=== PATIENT | female | born 1970 | race Caucasian/White ===

== ENCOUNTER 2018-04-08 20:30 | Emergency (ER) | payer OTHER ==
[2018-04-08 20:38] VITALS: BP 142/79; PULSE 74; TEMP 97.7; BMI 29.8
--- NOTE | 2018-04-08 21:29 | PDOC ---
History of Present Illness - General Chief Complaint: Pain, Acute Stated Complaint: PAIN Time Seen by Provider: 04/08/18 20:40 History Source: Patient Exam Limitations: No Limitations - History of Present Illness Initial Comments: 04/08/18 21:23 47-year-old woman past medical history of ADHD and meniscus repair of the left knee 4 years ago. Patient states she tore her ACL at that time but never had the ACL repair. Patient reports taking Percocet as prescribed by her primary which has not relieved the pain. Patient also took diclofenac she had from a previous prescription which had minimal relief of pain. She denies any new trauma to the knee. Past History - Past Medical History Allergies/Adverse Reactions: Allergies Allergy/AdvReac Type Severity Reaction Status Date / Time No Known Drug Allergies Allergy Verified 04/08/18 20:36 Home Medications: Ambulatory Orders Oxycodone HCl/Acetaminophen [Percocet 5-325 mg Tablet -] 1 cap PO Q4HWA PRN 02/08 Diclofenac Sodium 75 mg PO BID #60 tablet. 04/08/18 Anemia: No Asthma: No Cancer: No Cardiac Disorders: No CVA: No COPD: No CHF: No Dementia: No Diabetes: No GI Disorders: Yes (CHOLECYSTECTOMY) Disorders: No HTN: Yes Hypercholesterolemia: No Liver Disease: No Seizures: No Thyroid Disease: No - Surgical History Abdominal Surgery: No Appendectomy: No Cardiac Surgery: No Cholecystectomy: Yes Lung Surgery: No Neurologic Surgery: No Orthopedic Surgery: Yes (L ACL REPAIR) - Reproductive History Tubal Ligation: Yes - Immunization History Immunization Up to Date: Yes - Suicide/Smoking/Psychosocial Hx Smoking History: Current every day smoker Have you smoked in the past 12 months: Yes Number of Cigarettes Smoked Daily: 12 Cigars Per Day: 0 Information on smoking cessation initiated: No 'Breaking Loose' booklet given: 02/03/14 Hx Alcohol Use: No Drug/Substance Use Hx: No Substance Use Type: Alcohol Hx Substance Use Treatment: No Review of Systems - Review of Systems Able to Perform ROS?: Yes Is the patient limited Swedish proficient: No Constitutional: No: Symptoms Reported HEENTM: No: Symptoms Reported Respiratory: No: Symptoms reported Cardiac (ROS): No: Symptoms Reported ABD/GI: No: Symptoms Reported : No: Symptoms Reported Musculoskeletal: Yes: See HPI Integumentary: No: Symptoms Reported Neurological: No: Symptoms reported *Physical Exam - Vital Signs Last Vital Signs Temp Pulse Resp BP Pulse Ox 97.7 F 74 18 142/79 99 04/08/18 20:36 04/08/18 20:36 04/08/18 20:36 04/08/18 20:36 04/08/18 20:36 - Physical Exam General Appearance: Yes: Appropriately Dressed. No: Apparent Distress Respiratory/Chest: positive: Lungs Clear, Normal Breath Sounds. negative: Respiratory Distress, Accessory Muscle Use Cardiovascular: positive: Regular Rhythm, Regular Rate. negative: Murmur Gastrointestinal/Abdominal: positive: Normal Bowel Sounds, Soft. negative: Tender Musculoskeletal: positive: Normal Inspection, Other (No swelling or deformity noted to the left knee compared to the right). negative: CVA Tenderness Extremity: positive: Normal Capillary Refill, Normal Inspection, Normal Range of Motion Integumentary: positive: Normal Color, Dry, Warm Neurologic: positive: Alert, Motor Strength 5/5 Medical Decision Making - Medical Decision Making 04/08/18 21:25 A/P: 47-year-old woman with acute on chronic atraumatic left knee pain No swelling or deformity present of the left knee 2+ DP pulses bilaterally Patient is requesting Percocet I stop as follows: Patient Name: Kalpana Bahena Date: 1970 Address: [address] [place] [address] Sex: Female Rx Written Rx Dispensed Drug Quantity Days Supply Prescriber Name 03/23/2018 03/29/2018 vyvanse 60 mg capsule 30 30 Kevin Knapp 03/23/2018 03/29/2018 vyvanse 40 mg capsule 30 30 Kevin Knapp 03/28/2018 03/29/2018 vyvanse 20 mg capsule 30 30 Kevin Knapp 03/13/2018 03/14/2018 lyrica 100 mg capsule 60 30 Brynn Freeman NP 03/13/2018 03/13/2018 oxycodone-acetaminophen 10-325 mg tab 60 30 Brynn Freeman NP I'll discharge the patient to follow up to primary doctor and give her prescription for diclofenac. As explained to the patient she will not be receiving a prescription for Percocet and she should still have some remaining from her previous refill prescription on 03/13. *DC/Admit/Observation/Transfer Diagnosis at time of Disposition: Left knee pain Qualifiers: Chronicity: chronic Qualified Code(s): M25.562 - Pain in left knee; G89.29 - Other chronic pain; G89.29 - Other chronic pain - Discharge Dispostion Disposition: HOME Condition at time of disposition: Fair Decision to Admit order: No - Prescriptions Prescriptions: Diclofenac Sodium 75 mg PO BID #60 tablet.dr - Referrals Referrals: Jalen Baker [Primary Care Provider] - - Patient Instructions Additional Instructions: Take Tylenol or Motrin as needed for pain. Follow manufacturers instructions for appropriate dosage.. Apply ice for 20 minutes and removed for at least 20 minutes before reapplying the ice. Keep Cale wrap on your ankle as much as possible to help decrease some of the swelling control pain. Whenever possible keep your foot elevated to decrease swelling to your ankle. You've been given the number for an orthopedist. If symptoms do not resolve within the next 7 days call the orthopedist for further evaluation. Return to emergency department for discoloration of the foot, numbness or tingling to the foot, worsening pain, or any other concerns. Thank you very much for choosing us to provide your emergent healthcare needs. - Post Discharge Activity
== END 2018-04-08 21:41 | disposition home or self-care (01) ==
LOC: JERFT 20:30
DX: M25.562 Pain in left knee (principal); G89.29 Other chronic pain; I10 Essential (primary) hypertension; F90.9 Attention-deficit hyperactivity disorder, unspecified type; F17.210 Nicotine dependence, cigarettes, uncomplicated
CPT/HCPCS: 99281-25

== ENCOUNTER 2021-05-03 10:26 | Inpatient (IN) | payer OTHER ==
[2021-05-03] MEDS ORDERED: VANCOMYCIN 1,000 MG VIAL (RESTRICTED TO ID ONLY) ONE ×2 (10:35→12:21)
[2021-05-03 10:48] VITALS: BMI 26.3
[2021-05-03] MEDS ORDERED: MIDAZOLAM HCL 2 MG/2 ML SINGLE DOSE VIAL ONE ×3 (11:26→14:18)
[2021-05-03] MEDS ORDERED: TRANEXAMIC ACID 1000 MG/10 ML VIAL ONE (12:01)
[2021-05-03] MEDS ORDERED: DEXAMETHASONE SOD PHOSPHATE 4 MG/1 ML VIAL ONE (12:01)
[2021-05-03] MEDS ORDERED: ONDANSETRON 4 MG/2 ML VIAL ONE (12:01)
[2021-05-03] MEDS ORDERED: ceFAZolin SODIUM 1 GM VIAL ONE (12:01)
[2021-05-03] MEDS ORDERED: KETOROLAC TROMETHAMINE 30 MG/1 ML VIAL ONE (12:01)
[2021-05-03] MEDS ORDERED: EPHEDRINE SULFATE/0.9% NACL/PF 50 MG/10 ML SYRINGE NR ONE (12:07)
[2021-05-03] MEDS ORDERED: PROPOFOL 20 ML ONE ×2 (12:19→12:46)
[2021-05-03] MEDS ORDERED: ACETAMINOPHEN 1000 MG/100 ML VIAL (NON FORMULARY) IVPB ONE (12:30)
[2021-05-03] MEDS ORDERED: oxyCODONE HCL 5 MG TABLET PO PRN (12:30)
[2021-05-03] MEDS ORDERED: BUPIVICAINE 0.25%/MORPH PF/KETOROLAC - 51ML DISP.SYRINGE IA ONE ×3 (13:11→14:46)
[2021-05-03] MEDS ORDERED: MAG HYDROX/AL HYDROX/SIMETH 30 ML UNIT-DOSE CUP PO PRN (15:28)
[2021-05-03] MEDS ORDERED: ONDANSETRON 4 MG/2 ML VIAL IVPUSH PRN (15:28)
[2021-05-03] MEDS ORDERED: LACTATED RINGERS SOLUTION 1,000 ML IV SCH (15:30)
[2021-05-03] MEDS ORDERED: ACETAMINOPHEN INJECTION 100 ML IVPB ONE (15:48)
[2021-05-03] MEDS: oxyCODONE HCL 5 MG TABLET PO PRN (19:22)
[2021-05-03] MEDS: CEFAZOLIN 2 GM/D5W 2 GM/50 ML ML IVPB SCH ×2 (20:39→20:51)
[2021-05-03] MEDS: PREGABALIN 50 MG CAPSULE PO SCH (21:02)
[2021-05-03] MEDS: SENNOSIDES/DOCUSATE COMBO (SENNA PLUS) TABLET (UD) PO SCH (21:03)
[2021-05-03] MEDS: GABAPENTIN 300 MG CAPSULE PO SCH (21:03)
[2021-05-03] MEDS ORDERED: amLODIPine BESYLATE 5 MG TABLET (FP) PO SCH (22:00)
[2021-05-03] MEDS ORDERED: cloNIDine HCL 0.1 MG TABLET PO SCH (22:00)
[2021-05-04] MEDS: CEFAZOLIN 2 GM/D5W 2 GM/50 ML ML IVPB SCH ×2 (02:00→09:16)
[2021-05-04] MEDS ORDERED: METHADONE HCL 40 MG DISPERSABLE TABLET PO SCH ×2 (04:00→06:00)
[2021-05-04 07:53] LABS: HEMATOCRIT 35.3 % (32.4-45.2); HEMOGLOBIN 11.5 GM/dl (10.7-15.3); MCH 29.9 pg (25.7-33.7); MCHC 32.7 g/dl (32.0-36.0); MEAN CELL VOLUME 91.4 fl (80-96); MEAN PLT VOLUME 8.4 fl (7.5-11.1); PLATELET COUNT 212 K/MM3 (134-434); RBC 3.86 M/mm3 (3.60-5.2); RDW 13.2 % (11.6-15.6); WHITE BLOOD COUNT 6.7 K/mm3 (4.0-10.8)
[2021-05-04 07:55] LABS: CALCIUM 8.7 mg/dl (8.5-10); CREATININE 0.6 mg/dl (0.55-1.3)
[2021-05-04] MEDS: GABAPENTIN 300 MG CAPSULE PO SCH (09:16)
[2021-05-04] MEDS: PREGABALIN 50 MG CAPSULE PO SCH (09:16)
[2021-05-04] MEDS: SENNOSIDES/DOCUSATE COMBO (SENNA PLUS) TABLET (UD) PO SCH (09:16)
[2021-05-04] MEDS ORDERED: LISDEXAMFETAMINE DIMESYLATE 40 MG PO SCH (10:00)
[2021-05-04] MEDS ORDERED: MULTIVITAMINS (DAILY MVI) TABLET (FP) PO SCH (10:00)
[2021-05-04] MEDS ORDERED: ASPIRIN 325 MG TABLET PO SCH (10:00)
[2021-05-04] MEDS ORDERED: PANTOPRAZOLE 40 MG TABLET PO SCH (10:00)
[2021-05-04] MEDS: oxyCODONE HCL 5 MG TABLET PO PRN (11:36)
[2021-05-04 16:20] VITALS: BP 116/74; PULSE 72; TEMP 98.5
== END 2021-05-04 15:35 | disposition home health service (06) | DRG 302 ==
LOC: FM/S 10:26
PROVIDERS: ADMIT Orthopaedic Surgery Sports Medicine; ATTEND Nurse Practitioner Acute Care
PROC: 8E0Y0CZ Robotic Assisted Procedure of Lower Extremity, Open Approach (ICD-10-PCS; 2021-05-03)
PROC: 0SRD0J9 Replacement of Left Knee Joint with Synthetic Substitute, Cemented, Open Approach (ICD-10-PCS; principal; 2021-05-03 12:38)
DX: M17.12 Unilateral primary osteoarthritis, left knee (principal); J44.9 Chronic obstructive pulmonary disease, unspecified; F11.20 Opioid dependence, uncomplicated; M06.9 Rheumatoid arthritis, unspecified; I10 Essential (primary) hypertension; F41.9 Anxiety disorder, unspecified
CPT/HCPCS: 36415; 73560-TC-LT-FY; 80048; 85027; 88305-TC; 88311-TC; 94760; 97010-GP; 97116-GP; 97163-GP; J0131; J0735